=== PATIENT | female | born 1965 | race African-American/Black ===

== ENCOUNTER 2019-03-25 20:44 | Emergency (ER) | payer OTHER ==
[~2019-03-25] VITALS: Ht 157.5 cm; Wt 96.6 kg
[~2019-03-25 20:44] MED LIST: ACYC400T PO; ALPR0.5T PO; AMLO10TA4 PO; ASPI-482 PO; ASPI325T8 PO; CRESTOR40 MG PO; DIAZ5TAB4 PO; ESOM40CA PO; FERR325T72 PO; FLUT16SP2 NS; FLUT1DIS3 IH; FURO-68 PO; GABA300C18 PO; HYDR-2145 PO; HYDR-2769 PO; IBUP-1027 PO; LAMO100T5 PO; LINZESS290 MCG PO; LISI-130 PO; LUBI24CA7 PO; METH4TAB PO; METO-239 PO; OXYC10TA PO; OXYC1TAB15 PO; OXYC20TA34 PO; OXYC5CAP PO; POTA10TA12 PO; RIVA10TA PO; SERT100T PO; SUMA100T3 PO; TIZA4TAB PO; VENTOLIN HFA18 GM INH; ZOLP10TA PO
[2019-03-25 21:25] LABS: BASO # 0.1 x10^3/uL (0.0-0.2); BASO % 1 % (0-3); EOS # 0.4 x10^3/uL (0.0-0.7); EOS % 4 % (0-3); LYMPH # 3.7 x10^3/uL (1.0-4.8); LYMPH % 35 % (24-48); MEAN CORPUSCULAR HEMOGLOBIN 29 pg (25-35); MEAN CORPUSCULAR HGB CONC 33 g/dL (31-37); MEAN CORPUSCULAR VOLUME 88 fL (79-100); MONO # 0.5 x10^3/uL (0.0-1.1); MONO % 5 % (0-9); NEUT % 56 % (31-73); PLATELET COUNT 347 x10^3/uL (140-400); RED BLOOD COUNT 3.87 x10^6/uL (3.50-5.40); RED CELL DISTRIBUTION WIDTH 14.2 % (11.5-14.5); WHITE BLOOD COUNT 10.7 x10^3/uL (4.0-11.0)
[2019-03-25 21:33] LABS: PROTHROMBIN TIME PATIENT 13.6 SEC (11.7-14.0)
[2019-03-25 21:34] LABS: CALCIUM 8.9 mg/dL (8.5-10.1); CREATININE 1.2 mg/dL (0.6-1.0); GFR 57.1; POTASSIUM 3.8 mmol/L (3.5-5.1)
[2019-03-25 21:40] LABS: ALBUMIN 3.3 g/dL (3.4-5.0); ALBUMIN/GLOBULIN RATIO 0.8 (1.0-1.7); TOTAL BILIRUBIN 0.1 mg/dL (0.2-1.0); TOTAL PROTEIN 7.4 g/dL (6.4-8.2)
[2019-03-25] MEDS ORDERED: KETOROLAC 30 MG/ML VIAL. IV ONE (22:45)
[2019-03-25 23:30] VITALS: BP 114/64
[2019-03-25] MEDS ORDERED: Percogesic PO (23:37)
--- NOTE | 2019-03-25 23:37 | PHYS DOC ---
Past Medical History Past Medical History: Anxiety, CVA, Depression, Diabetes-Type II, Hypertension, [place], Seizure, Other Additional Past Medical Histor: osteoarthritis, ulcers,H-PYLORI,METALOSIS POISONING R/T HIP REPLACEMENT Past Surgical History: , Hip Replacement, Knee Replacement, Other Additional Past Surgical Histo: CARDIAC CATH, BACK SURG ROTATOR CUFF SURG,BREAST REDUCTION,HIP REVISION Additional Information: 3-4 ciigerttes per day Alcohol Use: None Drug Use: Marijuana Adult General Chief Complaint Chief Complaint: MECHANICAL FALL HPI HPI Patient is a 53 year old female who brought in by EMS because of a fall and left knee injury. Patient states she had an accidental fall this morning standing position and landed on her left knee because of her knee giving up under her and since this morning has pain in her left knee and unable to stand up and walk and finally called EMS this afternoon. Patient rated her pain 10 over 10 and denies other injuries and loss of consciousness. Patient states she took [id number] pain medication without improvement of her pain. Review of Systems Review of Systems Constitutional: Denies fever or chills [] Eyes: Denies change in visual acuity, redness, or eye pain [] HENT: Denies nasal congestion or sore throat [] Respiratory: Denies cough or shortness of breath [] Cardiovascular: No additional information not addressed in HPI [] GI: Denies abdominal pain, nausea, vomiting, bloody stools or diarrhea [] : Denies dysuria or hematuria [] Musculoskeletal: Denies back pain, reports joint pain [] Integument: Denies rash or skin lesions [] Neurologic: Denies headache, focal weakness or sensory changes [] Endocrine: Denies polyuria or polydipsia [] All other systems were reviewed and found to be within normal limits, except as documented in this note. Current Medications Current Medications Current Medications Medications (Trade) Dose Ordered Sig/Dede Start Time Stop Time Status Last Admin Dose Admin Ketorolac Tromethamine (Toradol 30mg Vial) 30 mg 1X ONCE 03/25/19 22:45 03/25/19 22:46 DC 03/25/19 23:23 30 MG Allergies Allergies Allergies Coded Allergies Type Severity Reaction Last Updated Verified codeine Allergy Intermediate 07/19/16 Yes hydromorphone Allergy Intermediate 07/19/16 Yes metoclopramide Allergy Intermediate 07/19/16 Yes morphine Allergy Intermediate 07/19/16 Yes oxycodone Allergy Intermediate Hives 03/25/19 Yes Physical Exam Physical Exam Constitutional: Well nourished, mild distress, non-toxic appearance. [] HENT: Normocephalic, atraumatic. Eyes: PERRLA, EOMI, conjunctiva normal, no discharge. [] Neck: Normal range of motion, no tenderness, supple, no stridor. [] Cardiovascular:Heart rate regular rhythm, no murmur [] Lungs & Thorax: Bilateral breath sounds clear to auscultation [] Abdomen: Bowel sounds normal, soft, no tenderness, no masses, no pulsatile masses. [] Skin: Warm, dry, no erythema, no rash. [] Back: No tenderness, no CVA tenderness. [] Extremities: Left knee in mild flexion and mild erythema, no sign of injury, no focal tenderness, painful range of motion, no cyanosis, no clubbing, no neurovascular deficit. Neurologic: Alert and oriented X 3, normal motor function, normal sensory function, no focal deficits noted. [] Psychologic: Affect anxious, judgement normal, mood normal. [] Current Patient Data Vital Signs Vital Signs Date Time Temp Pulse Resp B/P (MAP) Pulse Ox O2 Delivery O2 Flow Rate FiO2 03/25/19 23:30 78 18 99 03/25/19 20:50 99.2 113/70 (84) Room Air 99.2 Lab Values Laboratory Tests Test 03/25/19 21:10 White Blood Count 10.7 x10^3/uL (4.0-11.0) Red Blood Count 3.87 x10^6/uL (3.50-5.40) Hemoglobin 11.0 g/dL (12.0-15.5) L Hematocrit 34.0 % (36.0-47.0) L Mean Corpuscular Volume 88 fL (79-100) Mean Corpuscular Hemoglobin 29 pg (25-35) Mean Corpuscular Hemoglobin Concent 33 g/dL (31-37) Red Cell Distribution Width 14.2 % (11.5-14.5) Platelet Count 347 x10^3/uL (140-400) Neutrophils (%) (Auto) 56 % (31-73) Lymphocytes (%) (Auto) 35 % (24-48) Monocytes (%) (Auto) 5 % (0-9) Eosinophils (%) (Auto) 4 % (0-3) H Basophils (%) (Auto) 1 % (0-3) Neutrophils # (Auto) 6.0 x10^3uL (1.8-7.7) Lymphocytes # (Auto) 3.7 x10^3/uL (1.0-4.8) Monocytes # (Auto) 0.5 x10^3/uL (0.0-1.1) Eosinophils # (Auto) 0.4 x10^3/uL (0.0-0.7) Basophils # (Auto) 0.1 x10^3/uL (0.0-0.2) Prothrombin Time 13.6 SEC (11.7-14.0) Prothrombin Time INR 1.1 (0.8-1.1) Sodium Level 140 mmol/L (136-145) Potassium Level 3.8 mmol/L (3.5-5.1) Chloride Level 105 mmol/L (98-107) Carbon Dioxide Level 22 mmol/L (21-32) Anion Gap 13 (6-14) Blood Urea Nitrogen 14 mg/dL (7-20) Creatinine 1.2 mg/dL (0.6-1.0) H Estimated GFR (Cockcroft-Gault) 57.1 BUN/Creatinine Ratio 12 (6-20) Glucose Level 106 mg/dL (70-99) H Calcium Level 8.9 mg/dL (8.5-10.1) Total Bilirubin 0.1 mg/dL (0.2-1.0) L Aspartate Amino Transferase (AST) 10 U/L (15-37) L Alanine Aminotransferase (ALT) 16 U/L (14-59) Alkaline Phosphatase 80 U/L (46-116) Total Protein 7.4 g/dL (6.4-8.2) Albumin 3.3 g/dL (3.4-5.0) L Albumin/Globulin Ratio 0.8 (1.0-1.7) L Laboratory Tests 03/25/19 21:10 Laboratory Tests 03/25/19 21:10 EKG EKG [] Radiology/Procedures Radiology/Procedures [facility] [address] [place], [place] [id number] IMAGING REPORT Signed PATIENT: RAVINDRA URENA ACCOUNT: [id number] : 1965 LOCATION: ER AGE: 53 SEX: F EXAM STATUS: DEP ER ORD. PHYSICIAN: CIELO COOPER MD REASON: fall PROCEDURE: KNEE LEFT 3V Three-view left knee radiographs 03/25/2019 CLINICAL HISTORY: Fall with injury to the left knee. AP, two lateral and an oblique digital radiographs of the left knee were obtained. No fracture or dislocation of the left knee is seen. Moderate degenerative changes are seen involving all 3 compartments of the left knee. IMPRESSION: No fracture or dislocation of the left knee is seen. Electronically signed by: Gavin Clark MD (03/26/2019 1:12 AM) [facility] DICTATED and SIGNED BY: GAVIN CLARK MD DATE: 03/26/19111 [facility] [address] [place] [address] IMAGING REPORT Signed PATIENT: RAVINDRA URENA ACCOUNT: [id number] : 1965 LOCATION: ER AGE: 53 SEX: F EXAM STATUS: DEP ER ORD. PHYSICIAN: CIELO COOPER MD REASON: fall PROCEDURE: PELVIS AP pelvis radiograph 03/25/2019 CLINICAL HISTORY: Fall with pelvic pain. 2 AP digital radiographs of the pelvis to include both hips were obtained. The patient is post bilateral STEPHANIE. No pelvic bone fracture is seen. Both hips are intact. IMPRESSION: No pelvic bone fracture is seen. Electronically signed by: Gavin Clark MD (03/26/2019 1:16 AM) [facility] DICTATED and SIGNED BY: GAVIN CLARK MD DATE: 03/26/19115 Course & Med Decision Making Course & Med Decision Making Pertinent Labs and Imaging studies reviewed. (See chart for details) Evaluation of patient in ER showed 53-year-old female patient with complaining of left knee injury. Patient was very anxious and asking for pain medication frequently. Patient had unremarkable x-ray and CT of left knee. Patient was able to stand and walk with crutches after applying knee immobilizer. Patient was advised to follow-up with her primary care physician. Dragon Disclaimer Dragon Disclaimer This electronic medical record was generated, in whole or in part, using a voice recognition dictation system. Departure Departure Impression: Primary Impression: Left knee injury Additional Impressions: Fall at home Left knee DJD Disposition: HOME, SELF-CARE (at 2333) Condition: IMPROVED Referrals: [facility] (PCP) Patient Instructions: Fall Prevention and Home Safety, Knee Sprain Additional Instructions: Follow-up your orthopedic physician tomorrow Follow-up with your primary care physician in 3-5 days Return to ER if not getting better Scripts [Percogesic] No Conflict Check 1 TAB PO [id number] PRN for PAIN, #14 Prov: CIELO COOPER MD 03/25/19 Problem Qualifiers Primary Impression: Left knee injury Encounter type: initial encounter Qualified Codes: S89.92XA - Unspecified injury of left lower leg, initial encounter Additional Impressions: Fall at home Encounter type: subsequent encounter Qualified Codes: W19.XXXD - Unspecified fall, subsequent encounter; Y92.009 - Unspecified place in unspecified non-institutional (private) residence as the place of occurrence of the external cause Left knee DJD Osteoarthritis type: unspecified Qualified Codes: M17.12 - Unilateral primary osteoarthritis, left knee CIELO COOPER MD March 25, 2019 23:37
--- NOTE | 2019-03-26 01:15 | RAD ---
Three-view left knee radiographs 03/25/2019 CLINICAL HISTORY: Fall with injury to the left knee. AP, two lateral and an oblique digital radiographs of the left knee were obtained. No fracture or dislocation of the left knee is seen. Moderate degenerative changes are seen involving all 3 compartments of the left knee. IMPRESSION: No fracture or dislocation of the left knee is seen. Electronically signed by: Gavin lCark MD (03/26/2019 1:12 AM) [facility]
--- NOTE | 2019-03-26 01:19 | RAD ---
AP pelvis radiograph 03/25/2019 CLINICAL HISTORY: Fall with pelvic pain. 2 AP digital radiographs of the pelvis to include both hips were obtained. The patient is post bilateral STEPHANIE. No pelvic bone fracture is seen. Both hips are intact. IMPRESSION: No pelvic bone fracture is seen. Electronically signed by: Gavin Clark MD (03/26/2019 1:16 AM) [facility]
== END 2019-03-25 23:45 | disposition home or self-care (01) ==
LOC: ER 20:44
DX: S89.92XA Unspecified injury of left lower leg, initial encounter (principal); M17.12 Unilateral primary osteoarthritis, left knee; E11.9 Type 2 diabetes mellitus without complications; I10 Essential (primary) hypertension; I25.2 Old myocardial infarction; Z86.73 Personal history of transient ischemic attack (TIA), and cerebral infarction without residual deficits; Z96.659 Presence of unspecified artificial knee joint; Z96.641 Presence of right artificial hip joint; W18.39XA Other fall on same level, initial encounter; Y93.89 Activity, other specified; Y92.89 Other specified places as the place of occurrence of the external cause; Y99.8 Other external cause status
CPT/HCPCS: 36415; 72170; 73562; 80053; 85025; 85610; 96374; 99285; J1885

== ENCOUNTER 2019-04-21 20:40 | Emergency (ER) | payer OTHER ==
[~2019-04-21] VITALS: Ht 157.5 cm; Wt 96.6 kg
[~2019-04-21 20:40] MED LIST changes: +Percogesic PO
--- NOTE | 2019-04-21 22:14 | PHYS DOC ---
Past Medical History Past Medical History: Anxiety, CVA, Depression, Diabetes-Type II, Diverticulitis, Hypertension, [place], Seizure, Other Additional Past Medical Histor: osteoarthritis, ulcers,H-PYLORI,METALOSIS POISONING R/T HIP REPLACEMENT Past Surgical History: , Hip Replacement, Knee Replacement, Other Additional Past Surgical Histo: CARDIAC CATH, BACK SURG ROTATOR CUFF SURG,BREAST REDUCTION,HIP REVISION Alcohol Use: None Drug Use: Marijuana Adult General Chief Complaint Chief Complaint: ABDOMINAL PAIN [facility] HPI Patient is a 53 year old female who presents with complaining of abdominal pain. Patient complaining of constant left upper quadrant pain for 2 months as a sharp pain without radiation and rated her pain 10 over 10. Patient complaining of nausea without vomiting, diarrhea, constipation, chest pain. Patient comes of one episode of UTI with urinary frequency and dysuria at that improved with antibiotic. Patient also complaining of shortness of breath with history of smoking. Patient states she was seen by a neurologist and primary care physician and taking Lyrica and gabapentin without improvement of her pain. Patient was sleeping and snoring when I went to the room and after she woke up she rated her pain 10 over 10. Review of Systems Review of Systems Constitutional: Denies fever or chills [] Eyes: Denies change in visual acuity, redness, or eye pain [] HENT: Denies nasal congestion or sore throat [] Respiratory: Denies cough or shortness of breath [] Cardiovascular: No additional information not addressed in HPI [] GI: Reports abdominal pain, nausea, denies vomiting, bloody stools or diarrhea [] : Denies dysuria or hematuria [] Musculoskeletal: Denies back pain or joint pain [] Integument: Denies rash or skin lesions [] Neurologic: Denies headache, focal weakness or sensory changes [] Endocrine: Denies polyuria or polydipsia [] All other systems were reviewed and found to be within normal limits, except as documented in this note. Current Medications Current Medications Current Medications Medications (Trade) Dose Ordered Sig/Dede Start Time Stop Time Status Last Admin Dose Admin Info (CONTRAST GIVEN -- Rx MONITORING) 1 each PRN DAILY PRN 04/22/19 00:15 04/22/19 00:59 DC Iohexol (Omnipaque 240 Mg/ml) 30 ml 1X ONCE 04/22/19 00:30 04/22/19 00:31 DC 04/22/19 00:04 30 ML Sodium Chloride 1,000 ml @ 1,000 mls/hr Q1H 04/21/19 22:30 04/21/19 23:29 DC 04/21/19 22:00 1,000 MLS/HR Allergies Allergies Allergies Coded Allergies Type Severity Reaction Last Updated Verified codeine Allergy Intermediate 07/19/16 Yes hydromorphone Allergy Intermediate 07/19/16 Yes metoclopramide Allergy Intermediate 07/19/16 Yes morphine Allergy Intermediate 07/19/16 Yes oxycodone Allergy Intermediate Hives 03/25/19 Yes Physical Exam Physical Exam Constitutional: Well developed, well nourished, no acute distress, non-toxic appearance. [] HENT: Normocephalic, atraumatic, oropharynx moist. Eyes: PERRLA, EOMI, conjunctiva normal, no discharge. [] Neck: Normal range of motion, no tenderness, supple, no stridor. [] Cardiovascular:Heart rate regular rhythm, no murmur [] Lungs & Thorax: Bilateral breath sounds clear to auscultation [] Abdomen: Bowel sounds normal, soft, no tenderness, no masses, no pulsatile ma sses. [] Skin: Warm, dry, no erythema, no rash. [] Back: No tenderness, no CVA tenderness. [] Extremities: No tenderness, no cyanosis, no clubbing, ROM intact, no edema. [] Neurologic: Alert and oriented X 3, normal motor function, normal sensory function, no focal deficits noted. [] Current Patient Data Vital Signs Vital Signs Date Time Temp Pulse Resp B/P (MAP) Pulse Ox O2 Delivery O2 Flow Rate FiO2 04/22/19 00:30 80 16 111/74 (86) 97 Room Air 04/21/19 21:26 98.4 98.4 Lab Values Laboratory Tests Test 04/21/19 22:00 White Blood Count 11.1 x10^3/uL (4.0-11.0) H Red Blood Count 3.96 x10^6/uL (3.50-5.40) Hemoglobin 11.5 g/dL (12.0-15.5) L Hematocrit 34.9 % (36.0-47.0) L Mean Corpuscular Volume 88 fL (79-100) Mean Corpuscular Hemoglobin 29 pg (25-35) Mean Corpuscular Hemoglobin Concent 33 g/dL (31-37) Red Cell Distribution Width 14.7 % (11.5-14.5) H Platelet Count 299 x10^3/uL (140-400) Neutrophils (%) (Auto) 67 % (31-73) Lymphocytes (%) (Auto) 25 % (24-48) Monocytes (%) (Auto) 5 % (0-9) Eosinophils (%) (Auto) 3 % (0-3) Basophils (%) (Auto) 1 % (0-3) Neutrophils # (Auto) 7.4 x10^3uL (1.8-7.7) Lymphocytes # (Auto) 2.7 x10^3/uL (1.0-4.8) Monocytes # (Auto) 0.5 x10^3/uL (0.0-1.1) Eosinophils # (Auto) 0.4 x10^3/uL (0.0-0.7) Basophils # (Auto) 0.1 x10^3/uL (0.0-0.2) Sodium Level 139 mmol/L (136-145) Potassium Level 4.2 mmol/L (3.5-5.1) Chloride Level 102 mmol/L (98-107) Carbon Dioxide Level 28 mmol/L (21-32) Anion Gap 9 (6-14) Blood Urea Nitrogen 21 mg/dL (7-20) H Creatinine 1.5 mg/dL (0.6-1.0) H Estimated GFR (Cockcroft-Gault) 44.1 BUN/Creatinine Ratio 14 (6-20) Glucose Level 98 mg/dL (70-99) Calcium Level 9.7 mg/dL (8.5-10.1) Total Bilirubin 0.2 mg/dL (0.2-1.0) Aspartate Amino Transferase (AST) 12 U/L (15-37) L Alanine Aminotransferase (ALT) 16 U/L (14-59) Alkaline Phosphatase 91 U/L (46-116) Total Protein 7.9 g/dL (6.4-8.2) Albumin 3.7 g/dL (3.4-5.0) Albumin/Globulin Ratio 0.9 (1.0-1.7) L Lipase 125 U/L (73-393) Laboratory Tests 04/21/19 22:00 Laboratory Tests 04/21/19 22:00 EKG EKG [] Radiology/Procedures Radiology/Procedures [] [address] [place] [address] IMAGING REPORT Signed PATIENT: RAVINDRA URENA ACCOUNT: [id number] : 1965 LOCATION: ER AGE: 53 SEX: F EXAM STATUS: REG ER ORD. PHYSICIAN: CIELO COOPER MD REASON: left upper quadrant pain PROCEDURE: CT ABD PEL W/ORAL CONTRST ONLY PQRS Compliance Statement: One or more of the following individualized dose reduction techniques were utilized for this examination: 1. Automated exposure control 2. Adjustment of the mA and/or kV according to patient size 3. Use of iterative reconstruction technique CT abdomen/pelvis with contrast 04/21/2019 11:48 PM INDICATION: Left upper quadrant abdominal pain COMPARISON: CT abdomen/pelvis September 12, 2016 TECHNIQUE: Multiple axial CT images of the abdomen and pelvis were obtained after the intravenous administration of nonionic contrast. Coronal and sagittal reformats are provided. FINDINGS: Bandlike density in the left lower lobe may represent subsegmental atelectasis. Heart size is within normal limits. Evaluation of the solid abdominal viscera is limited by lack of intravenous contrast. Calcifications within the spleen likely represent sequela of prior granulomatous exposure. Liver, bilateral adrenal glands, pancreas and gallbladder are normal in appearance. Aorta is normal in course and caliber. No pathologically enlarged lymph nodes are identified in the abdomen and pelvis. There is no free fluid or free intraperitoneal air. Evaluation of the pelvis is limited secondary to streak artifact from bilateral total hip arthroplasty. No definite hip joint effusions are identified. The kidneys are relatively symmetric in appearance. There is no suspicious renal mass within the limitations of a noncontrast examination. There is no hydronephrosis. There are no calculi within the kidneys, ureters or urinary bladder. Oral contrast was administered. Opacified bowel loops demonstrate normal mucosal fold pattern. Small and large bowel are normal in caliber. There is no evidence for bowel obstruction. There are no pericolonic inflammatory changes. Appendix is normal. Urinary bladder is within normal limits as visualized. Uterus and adnexa appear normal by CT. Moderate degenerative disc disease identified at L5-S1 with posterior disc osteophyte complex resulting in moderate bilateral osseous neuroforaminal stenosis and moderate spinal canal stenosis. IMPRESSION: 1. Bandlike density in the left lower lobe may represent subsegmental atelectasis. 2. No evidence for bowel obstruction or inflammation. Electronically signed by: Senait Caballero MD (04/22/2019 12:20 AM) [facility] [id number] DICTATED and SIGNED BY: SENAIT CABALLERO MD DATE: 04/22/1919 Course & Med Decision Making Course & Med Decision Making Pertinent Labs and Imaging studies reviewed. (See chart for details) Evaluation of patient in ER showed 53-year-old female patient with history of frequent emergency room visits presented to ER with complaining of left upper quadrant pain for 2 months. Patient rated her pain 10 over 10 but was able to falling asleep most the time in ER. Patient had unremarkable CT of abdomen and p debra and labs except for mild anemia and renal insufficiency as a chronic problem. Patient was advised to follow up with her primary care physician for evaluation of chronic abdominal pain and possible referral to GI specialist. Dragon Disclaimer Dragon Disclaimer This electronic medical record was generated, in whole or in part, using a voice recognition dictation system. Departure Departure Impression: Primary Impression: Chronic abdominal pain Additional Impressions: Renal insufficiency Anemia Disposition: 01 HOME, SELF-CARE (at 0041) Condition: STABLE Referrals: WILLIAM RAND COUTIERIER (PCP) NELIDA PHILLIP MD Patient Instructions: Abdominal Pain (Nonspecific), Anemia, Nonspecific-Brief, Chronic Renal Insufficiency Additional Instructions: Drink plenty of liquids Follow-up with your primary care physician in 3-5 days Return to ER if not getting better Follow-up with GI specialist regarding chronic abdominal pain Scripts [Percogesic] No Conflict Check 1 TAB PO QID PRN for PAIN, #14 TAB Prov: CIELO COOPER MD 04/22/19 Problem Qualifiers Additional Impressions: Anemia Anemia type: unspecified type Qualified Codes: D64.9 - Anemia, unspecified CIELO COOPER MD Apr 21, 2019 22:14
[2019-04-21 22:18] LABS: BASO # 0.1 x10^3/uL (0.0-0.2); BASO % 1 % (0-3); EOS # 0.4 x10^3/uL (0.0-0.7); EOS % 3 % (0-3); HEMATOCRIT 34.9 % (36.0-47.0); HEMOGLOBIN 11.5 g/dL (12.0-15.5); LYMPH # 2.7 x10^3/uL (1.0-4.8); LYMPH % 25 % (24-48); MEAN CORPUSCULAR HEMOGLOBIN 29 pg (25-35); MEAN CORPUSCULAR HGB CONC 33 g/dL (31-37); MEAN CORPUSCULAR VOLUME 88 fL (79-100); MONO # 0.5 x10^3/uL (0.0-1.1); MONO % 5 % (0-9); NEUT # 7.4 x10^3uL (1.8-7.7); NEUT % 67 % (31-73); PLATELET COUNT 299 x10^3/uL (140-400); RED BLOOD COUNT 3.96 x10^6/uL (3.50-5.40); RED CELL DISTRIBUTION WIDTH 14.7 % (11.5-14.5); WHITE BLOOD COUNT 11.1 x10^3/uL (4.0-11.0)
[2019-04-21] MEDS ORDERED: IV NORMAL SALINE 1000ML BAG 1,000 ML IV SCH (22:30)
[2019-04-21 22:35] LABS: CALCIUM 9.7 mg/dL (8.5-10.1); CREATININE 1.5 mg/dL (0.6-1.0); GFR 44.1; POTASSIUM 4.2 mmol/L (3.5-5.1)
[2019-04-21 22:39] LABS: ALBUMIN 3.7 g/dL (3.4-5.0); ALBUMIN/GLOBULIN RATIO 0.9 (1.0-1.7); TOTAL BILIRUBIN 0.2 mg/dL (0.2-1.0); TOTAL PROTEIN 7.9 g/dL (6.4-8.2)
[2019-04-22] MEDS ORDERED: CONTRAST GIVEN. MC PRN (00:15)
--- NOTE | 2019-04-22 00:23 | RAD ---
PQRS Compliance Statement: One or more of the following individualized dose reduction techniques were utilized for this examination: 1. Automated exposure control 2. Adjustment of the mA and/or kV according to patient size 3. Use of iterative reconstruction technique CT abdomen/pelvis with contrast 04/21/2019 11:48 PM INDICATION: Left upper quadrant abdominal pain COMPARISON: CT abdomen/pelvis September 12, 2016 TECHNIQUE: Multiple axial CT images of the abdomen and pelvis were obtained after the intravenous administration of nonionic contrast. Coronal and sagittal reformats are provided. FINDINGS: Bandlike density in the left lower lobe may represent subsegmental atelectasis. Heart size is within normal limits. Evaluation of the solid abdominal viscera is limited by lack of intravenous contrast. Calcifications within the spleen likely represent sequela of prior granulomatous exposure. Liver, bilateral adrenal glands, pancreas and gallbladder are normal in appearance. Aorta is normal in course and caliber. No pathologically enlarged lymph nodes are identified in the abdomen and pelvis. There is no free fluid or free intraperitoneal air. Evaluation of the pelvis is limited secondary to streak artifact from bilateral total hip arthroplasty. No definite hip joint effusions are identified. The kidneys are relatively symmetric in appearance. There is no suspicious renal mass within the limitations of a noncontrast examination. There is no hydronephrosis. There are no calculi within the kidneys, ureters or urinary bladder. Oral contrast was administered. Opacified bowel loops demonstrate normal mucosal fold pattern. Small and large bowel are normal in caliber. There is no evidence for bowel obstruction. There are no pericolonic inflammatory changes. Appendix is normal. Urinary bladder is within normal limits as visualized. Uterus and adnexa appear normal by CT. Moderate degenerative disc disease identified at L5-S1 with posterior disc osteophyte complex resulting in moderate bilateral osseous neuroforaminal stenosis and moderate spinal canal stenosis. IMPRESSION: 1. Bandlike density in the left lower lobe may represent subsegmental atelectasis. 2. No evidence for bowel obstruction or inflammation. Electronically signed by: Mylene Shaikh MD (04/22/2019 12:20 AM) [id number]
[2019-04-22 00:30] VITALS: BP 111/74
[2019-04-22] MEDS ORDERED: IOHEXOL 240 MG/ML 50ML VIAL. PO ONE (00:30)
[2019-04-22] MEDS ORDERED: Percogesic PO (00:44)
== END 2019-04-22 00:55 | disposition home or self-care (01) ==
LOC: ER 20:40
DX: G89.29 Other chronic pain (principal); R10.12 Left upper quadrant pain; D64.9 Anemia, unspecified; N28.9 Disorder of kidney and ureter, unspecified; E11.9 Type 2 diabetes mellitus without complications; I10 Essential (primary) hypertension; I25.2 Old myocardial infarction; Z86.73 Personal history of transient ischemic attack (TIA), and cerebral infarction without residual deficits; Z88.5 Allergy status to narcotic agent; Z88.8 Allergy status to other drugs, medicaments and biological substances
CPT/HCPCS: 36415; 74176; 80053; 83690; 85025; 99285; J7030; Q9966; 96360

== ENCOUNTER 2019-04-25 09:52 | Emergency (ER) | payer OTHER ==
[~2019-04-25] VITALS: Ht 157.5 cm; Wt 98.0 kg
[2019-04-25] MEDS ORDERED: LIDO:MAALOX 1:1 20 ML SINGLE DOSE. PO STA (10:29)
[2019-04-25] MEDS ORDERED: ACETAMINOPHEN 500 MG TABLET PO ONE (10:30)
[2019-04-25] MEDS ORDERED: FAMOTIDINE 20 MG TABLET. PO ONE (10:30)
[2019-04-25] MEDS ORDERED: PANTOPRAZOLE 40 MG TABLET.DR. PO ONE (10:30)
[2019-04-25 10:39] LABS: BASO # 0.1 x10^3/uL (0.0-0.2); BASO % 1 % (0-3); EOS # 0.4 x10^3/uL (0.0-0.7); EOS % 4 % (0-3); HEMOGLOBIN 11.5 g/dL (12.0-15.5); LYMPH # 3.6 x10^3/uL (1.0-4.8); LYMPH % 34 % (24-48); MEAN CORPUSCULAR HEMOGLOBIN 29 pg (25-35); MEAN CORPUSCULAR HGB CONC 33 g/dL (31-37); MEAN CORPUSCULAR VOLUME 89 fL (79-100); MONO # 0.4 x10^3/uL (0.0-1.1); MONO % 4 % (0-9); NEUT # 5.9 x10^3uL (1.8-7.7); NEUT % 57 % (31-73); PLATELET COUNT 317 x10^3/uL (140-400); RED BLOOD COUNT 3.93 x10^6/uL (3.50-5.40); RED CELL DISTRIBUTION WIDTH 14.4 % (11.5-14.5); WHITE BLOOD COUNT 10.4 x10^3/uL (4.0-11.0)
--- NOTE | 2019-04-25 10:40 | PHYS DOC ---
Past Medical History Past Medical History: Anxiety, CVA, Depression, Diabetes-Type II, Diverticulitis, Hypertension, [place], Seizure, Other Additional Past Medical Histor: osteoarthritis, ulcers,H-PYLORI,METALOSIS POISONING R/T HIP REPLACEMENT Past Surgical History: , Hip Replacement, Knee Replacement, Other Additional Past Surgical Histo: CARDIAC CATH, BACK SURG ROTATOR CUFF SURG,BREAST REDUCTION,HIP REVISION Alcohol Use: None Drug Use: Marijuana Adult General Chief Complaint Chief Complaint: ABDOMINAL PAIN HPI HPI Patient is a 53 year old female who presents the ER for evaluation. Patient is a very poor historian with poor insight into her chronic medical conditions and daily medications. She is intermittently belligerent yelling and calling myself and other staff "bitch." She also intermittently refuses to answer any questions and is demanding to drink. After repetitive attempts again history patient apparently has been having chronic left upper quadrant abdominal pain for the past 2 months has been waxing and waning. Questionable aggravation with food intake. Pain has increased over the past 2 weeks and then over the past subsequent 2 days. Patient was seen in this ER on April 22. At that time she was had a CT of her abdomen pelvis with no acute findings. Patient has history of chronic constipation. Patient reports that she had a BM this a.m. but is unable to comment on whether or not it was hard or soft. Patient takes daily linens and S and MiraLAX. Patient states that she takes Protonix daily but is unsure the milligrams. Patient takes ibuprofen daily for pain. Patient denies any GI bleed symptoms including melanotic stools. No fever. Patient reports many years ago having similar symptoms associated with H. pylori. Patient has only recently seen a GI doctor for her screening colonoscopy. Review of Systems Review of Systems Constitutional: Denies fever or chills [] HENT: Denies nasal congestion or sore throat [] Respiratory: Denies cough or shortness of breath [] Cardiovascular: No additional information not addressed in HPI [] GI: Denies abdominal pain, nausea, vomiting, bloody stools or diarrhea [] : Denies dysuria or hematuria [] Musculoskeletal: Denies back pain or joint pain [] Integument: Denies rash or skin lesions [] Neurologic: Denies headache, focal weakness or sensory changes [] Endocrine: Denies polyuria or polydipsia [] All other systems were reviewed and found to be within normal limits, except as documented in this note. Current Medications Current Medications Current Medications Medications (Trade) Dose Ordered Sig/Dede Start Time Stop Time Status Last Admin Dose Admin Acetaminophen (Tylenol) 1,000 mg 1X ONCE 04/25/19 10:30 04/25/19 10:33 DC 04/25/19 10:37 1,000 MG Acetaminophen/ Hydrocodone Bitart (Lortab 10/325) 1 tab 1X ONCE 04/25/19 12:00 04/25/19 12:01 DC 04/25/19 12:00 1 TAB Famotidine (Pepcid) 20 mg 1X ONCE 04/25/19 10:30 04/25/19 10:34 DC 04/25/19 10:37 20 MG Multi-Ingredient Mouthwash/Gargle (Gi Cocktail) 20 ml ONCE STAT 04/25/19 10:29 04/25/19 10:33 DC 04/25/19 10:37 20 ML Pantoprazole Sodium (Protonix) 40 mg 1X ONCE 04/25/19 10:30 04/25/19 10:33 DC 04/25/19 10:37 40 MG Allergies Allergies Allergies Coded Allergies Type Severity Reaction Last Updated Verified codeine Allergy Intermediate 07/19/16 Yes hydromorphone Allergy Intermediate 07/19/16 Yes metoclopramide Allergy Intermediate 07/19/16 Yes morphine Allergy Intermediate 07/19/16 Yes oxycodone Adverse Reaction Unknown constipation 04/25/19 Yes Physical Exam Physical Exam Constitutional: Obese, anxious, yelling, nontoxic appearing] HENT: Normocephalic, atraumatic, Eyes: PERRLA, EOMI, Neck: Normal range of motion, no tenderness, supple, no stridor. [] Cardiovascular:Heart rate regular rhythm, no murmur [] Lungs & Thorax: Bilateral breath sounds clear to auscultation [] Abdomen: Obese, diffuse bowel sounds, soft, mild left upper quadrant tenderness with distraction. No guarding, no rebound tenderness. Skin: Warm, dry, no erythema, no rash. [] Back: No tenderness, no CVA tenderness. [] Extremities: No tenderness, no cyanosis, no clubbing, ROM intact, no edema. [] Neurologic: Alert and oriented X 3, no focal deficits noted. [] Psychologic: Affect normal, judgement normal, mood normal. [] Current Patient Data Vital Signs Vital Signs Date Time Temp Pulse Resp B/P (MAP) Pulse Ox O2 Delivery O2 Flow Rate FiO2 04/25/19 12:00 16 98 Room Air 04/25/19 11:36 92 118/57 (77) 04/25/19 09:52 99.0 99.0 Lab Values Laboratory Tests Test 04/25/19 10:00 White Blood Count 10.4 x10^3/uL (4.0-11.0) Red Blood Count 3.93 x10^6/uL (3.50-5.40) Hemoglobin 11.5 g/dL (12.0-15.5) L Hematocrit 35.0 % (36.0-47.0) L Mean Corpuscular Volume 89 fL (79-100) Mean Corpuscular Hemoglobin 29 pg (25-35) Mean Corpuscular Hemoglobin Concent 33 g/dL (31-37) Red Cell Distribution Width 14.4 % (11.5-14.5) Platelet Count 317 x10^3/uL (140-400) Neutrophils (%) (Auto) 57 % (31-73) Lymphocytes (%) (Auto) 34 % (24-48) Monocytes (%) (Auto) 4 % (0-9) Eosinophils (%) (Auto) 4 % (0-3) H Basophils (%) (Auto) 1 % (0-3) Neutrophils # (Auto) 5.9 x10^3uL (1.8-7.7) Lymphocytes # (Auto) 3.6 x10^3/uL (1.0-4.8) Monocytes # (Auto) 0.4 x10^3/uL (0.0-1.1) Eosinophils # (Auto) 0.4 x10^3/uL (0.0-0.7) Basophils # (Auto) 0.1 x10^3/uL (0.0-0.2) Sodium Level 140 mmol/L (136-145) Potassium Level 3.8 mmol/L (3.5-5.1) Chloride Level 102 mmol/L (98-107) Carbon Dioxide Level 25 mmol/L (21-32) Anion Gap 13 (6-14) Blood Urea Nitrogen 15 mg/dL (7-20) Creatinine 1.4 mg/dL (0.6-1.0) H Estimated GFR (Cockcroft-Gault) 47.8 BUN/Creatinine Ratio 11 (6-20) Glucose Level 114 mg/dL (70-99) H Calcium Level 9.3 mg/dL (8.5-10.1) Total Bilirubin 0.3 mg/dL (0.2-1.0) Aspartate Amino Transferase (AST) 12 U/L (15-37) L Alanine Aminotransferase (ALT) 15 U/L (14-59) Alkaline Phosphatase 108 U/L (46-116) Total Protein 8.0 g/dL (6.4-8.2) Albumin 3.6 g/dL (3.4-5.0) Albumin/Globulin Ratio 0.8 (1.0-1.7) L Lipase 105 U/L (73-393) Laboratory Tests 04/25/19 10:00 Laboratory Tests 04/25/19 10:00 EKG EKG 09 58: Normal sinus rhythm, no significant ST segment changes. Heart rate 87.[] Radiology/Procedures Radiology/Procedures Acute abdominal series [] IMPRESSION: 1. Correlate for mild airspace infiltrates in the left midlung and bases. 2. No evidence of obstruction. Correlate for mild constipation. Course & Med Decision Making Course & Med Decision Making Pertinent Labs and Imaging studies reviewed. (See chart for details) []1230: Patient with volatile course in the ER. At times she was comfortable and other times she was yelling at staff. She had relief with velvet glove. Patient's pain is left upper quadrant she had a normal CT a few days ago. No acute findings on acute abdominal series that correlate symptoms. Suspected the patient has gastritis versus gastric ulcers. Patient does report that she has a history of this in the past with a associated H pylori infection. She has not seen her primary care doctor for this complaint. Patient did not get the prescription prescribed yesterday filled. We'll add Pepcid and carefully to her current daily Protonix. Will provide very short course of narcotics. Patient counseled extensively on appropriate diet for gastric ulcers. Patient has been taking daily ibuprofen and drinking daily coffee. Patient advised to call the referred GI physician on Saturday and follow-up closely with her primary care physician. She has stable hemoglobin and renal function on her labs compared to previous. On repeat exam patient continues to have very mild left upper quadrant tenderness but otherwise has a nonsurgical abdomen. ER return precautions given. Patient verbalized understanding. All questions answered. Dragon Disclaimer Dragon Disclaimer This electronic medical record was generated, in whole or in part, using a voice recognition dictation system. Departure Departure Impression: Primary Impression: LUQ abdominal pain Additional Impression: Gastritis Disposition: HOME, SELF-CARE Condition: IMPROVED Referrals: [facility] (PCP) NELIDA PHILLIP MD Patient Instructions: Gastritis, Adult, Gastritis, Adult, [id number] Additional Instructions: Thank you for coming to [facility]. Please read the attached handouts. Please follow-up with your primary care physician. Return to the ER if your symptoms worsen or you have any other concerns. TAKE YOUR PROTONIX DAILY TAKE THE PEPCID TWICE A DAY TAKE THE CARAFATE FOUR TIMES A DAY TAKE THE PRESCRIBED NARCOTIC ONLY FOR UNCONTROLLED PAIN NO CAFFEINE, COFFEE, CHOCOLATE, SPICY FOODS, ACIDIC FOODS (ORANGE JUICE, TOMATO BASED SAUCES) OR ANY OTHER FOODS THAT MAKE YOUR PAIN WORSE FOLLOW UP WITH WILLIAM ON SATURDAY CALL THE REFERRED GI DOCTOR FOR AN APPOINTMENT ON SATURDAY Scripts Hydrocodone/Apap 5-325 (NORCO 5-325 TABLET) 1 Each Tablet 1-2 EACH PO PRN Q6HRS PRN for PAIN, #10 as needed for pain Prov: CARLOS ESPOSITO DO 04/25/19 Sucralfate (CARAFATE) 1 Gm/10 Ml Oral.susp 10 ML PO QID, #1200 ML Prov: CARLOS ESPOSITO DO 04/25/19 Famotidine (PEPCID) 20 Mg Tablet 20 MG PO BID for 30 Days, #60 TAB Prov: CARLOS ESPOSITO DO 04/25/19 Problem Qualifiers CARLOS ESPOSITO DO Apr 25, 2019 10:40
[2019-04-25 10:51] LABS: CALCIUM 9.3 mg/dL (8.5-10.1); CREATININE 1.4 mg/dL (0.6-1.0); GFR 47.8; POTASSIUM 3.8 mmol/L (3.5-5.1)
[2019-04-25 10:57] LABS: ALBUMIN 3.6 g/dL (3.4-5.0); ALBUMIN/GLOBULIN RATIO 0.8 (1.0-1.7); TOTAL BILIRUBIN 0.3 mg/dL (0.2-1.0)
--- NOTE | 2019-04-25 11:18 | RAD ---
EXAM: Two view abdomen with one view chest HISTORY: Abdominal pain. COMPARISON: 04/21/2019. FINDINGS: A frontal view of the chest and supine/upright views of the abdomen are obtained. There are mild airspace opacities in the left midlung. The inspiration is small with mild bibasilar atelectasis versus additional mild infiltrate. There is no pneumothorax or pleural effusion. The heart is not enlarged. The aorta is tortuous. There is no pneumoperitoneum. There are no distended small bowel loops or significant air-fluid levels. There is gas distally. Stool throughout the colon is consistent with constipation. Bilateral total hip arthroplasties are noted. There are moderate degenerative changes of the lower lumbar spine. There are calcified granulomas in the spleen. IMPRESSION: 1. Correlate for mild airspace infiltrates in the left midlung and bases. 2. No evidence of obstruction. Correlate for mild constipation. Electronically signed by: Etta Dowling MD (04/25/2019 11:15 AM) [facility]
[2019-04-25 11:36] VITALS: BP 118/57
[2019-04-25] MEDS ORDERED: FAMO-63 PO (11:58)
[2019-04-25] MEDS ORDERED: SUCR1ORA5 PO (11:58)
[2019-04-25] MEDS ORDERED: HYDR-3164 PO (11:58)
[2019-04-25] MEDS ORDERED: HYDROcodone/APAP 10/325 1 TAB TABLET PO ONE (12:00)
== END 2019-04-25 12:08 | disposition home or self-care (01) ==
LOC: ER 09:52
DX: K29.70 Gastritis, unspecified, without bleeding (principal); E11.9 Type 2 diabetes mellitus without complications; I10 Essential (primary) hypertension; I25.2 Old myocardial infarction; Z86.73 Personal history of transient ischemic attack (TIA), and cerebral infarction without residual deficits; Z96.649 Presence of unspecified artificial hip joint; Z88.5 Allergy status to narcotic agent; Z88.8 Allergy status to other drugs, medicaments and biological substances
CPT/HCPCS: 36415; 74022; 80053; 83690; 85025; 99285-25